=== PATIENT | female | born 1960 | race Caucasian/White ===

== ENCOUNTER → 2022-11-13 10:24 | Outpatient (BNVA) | payer MEDICARE, OTHER, SELFPAY | PROVIDERS: PCP Family Medicine; Visit Provider Physician Assistant Surgical ==

== ENCOUNTER → 2022-11-22 08:27 | Outpatient (BNVA) | payer MEDICARE, OTHER, SELFPAY | PROVIDERS: PCP Family Medicine; Visit Provider Physician Assistant | DX: E66.01 Morbid (severe) obesity due to excess calories (principal); E11.69 Type 2 diabetes mellitus with other specified complication; E78.5 Hyperlipidemia, unspecified; E87.5 Hyperkalemia; I10 Essential (primary) hypertension; I38 Endocarditis, valve unspecified; M19.90 Unspecified osteoarthritis, unspecified site; Z68.42 Body mass index [BMI] 45.0-49.9, adult | CPT/HCPCS: 99202 ==

== ENCOUNTER → 2022-12-26 09:47 | Outpatient (BNVA) | payer MEDICARE, OTHER, SELFPAY | PROVIDERS: PCP Family Medicine; Visit Provider Dietitian, Registered | DX: E66.01 Morbid (severe) obesity due to excess calories (principal); Z68.41 Body mass index [BMI] 40.0-44.9, adult | CPT/HCPCS: 97802 ==

== ENCOUNTER → 2023-02-17 14:22 | Outpatient (BNVA) | payer MEDICARE, OTHER, SELFPAY | PROVIDERS: PCP Family Medicine; Visit Provider Physician Assistant | DX: E66.01 Morbid (severe) obesity due to excess calories (principal); E11.69 Type 2 diabetes mellitus with other specified complication; E78.5 Hyperlipidemia, unspecified; I10 Essential (primary) hypertension; I38 Endocarditis, valve unspecified; Z68.42 Body mass index [BMI] 45.0-49.9, adult | CPT/HCPCS: 99212 ==

== ENCOUNTER 2023-03-24 10:59 | Outpatient (AMB) | payer MEDICARE, OTHER, SELFPAY ==
--- NOTE | 2023-03-24 11:00 | MHC.OFFVISWM ---
Intake VS Expanded 03/24/23 11:01 Height 5 ft 8.5 in Weight 296 lb 9.6 oz BMI 44.4 BP 144/63 H Blood Pressure Location Rt brachial Blood Pressure Position Sitting Pulse 76 Pulse Source Pulse Oximeter Temp 97.0 F Temperature Source Temporal Artery Scan Pulse Oximetry 95 Oxygen Delivery Method Room Air Body Fat 133.6 Body Fat Percentage 45.1 Free Fat Mass 163.0 Muscle Mass 154.8 Visceral Mass 16.0 Water Mass 115.6 BMR 2,294 Intake Visit Reasons: (OV) F/U [facility] Allergies No Known Allergies Allergy (Verified 03/24/23 11:07) Medication List - Last Reconciled 03/24/23 by Noni Cornelius PA-C atorvastatin 40 mg PO QPM bupropion HCl 150 mg PO DAILY citalopram 10 mg PO DAILY lisinopril 5 mg PO DAILY metoprolol succinate ER 25 mg PO DAILY HPI HPI Comments History of Present Illness Details This is the patients last [facility] appt, she started on 11/22/22 at 315.1 lbs and TBWL is 18.5 lbs or 5.9%. AIC down to 7.1 from 8.1. Exercise - tried to Antonio valadez- too hard for her and stopped. meal plan: tea with milk 9am - shake or 2 eggs with cheese or vegetable 1-2 pm - berries, 1/2 - full c low fat cottage cheese with 2 eggs if didn't have in am. Meat balls with sauce and cheese. 5-6 pm - chicken or fish with vegetables - orders out frequently after dinner - crackers with full fat cream crackers. [facility] Medical History (Updated 11/22/22 @ 09:21 by Noni Cornelius PA-C) Obesity Surgical History Hx of section Hx of cholecystectomy Family History Mother Multiple sclerosis Anemia Father Heart valve replaced Hypertension High cholesterol Daughter Anxiety Daughter Anxiety Social History Alcohol intake: never Patient Tobacco Use Status: Former Tobacco user Physical Exam Vital Signs: Last Vital Signs Temp 97.0 F 03/24/23 11:01 Pulse 76 07/17/23 11:01 BP 144/63 H 03/24/23 11:01 Pulse Ox 95 03/24/23 11:01 Oxygen Delivery Method Room Air 03/24/23 11:01 BMI result Body Mass Index 44.4 Assessment & Plan Assessment & Plan (1) Morbid obesity with BMI of 40.0-44.9, adult: Code(s): E66.01 - Morbid (severe) obesity due to excess calories; Z68.41 - Body mass index [BMI] 40.0-44.9, adult Plan: Last M[facility] appt with 18.5 lbs or 5.9% TBWL. I have tried again to encourage her to do the PE wheelchair exercises at least 4 d/week. She could not tell me whether she thinks this is a sustainable meal plan for her but did not have any other ideas either. We discussed mindfulness and choices. tea shake or 2 eggs with veggies cc with berries or eggs (if not for breakfast_ dinner protien and veg, 1/2 c healthy carb - no white carbs raw vegetables iwth reduced fat cream cheese Will have a follow up aptp in 3-4 months with me. Patient is morbidly obese and is not considered stable at this time. I spent 30 minutes in total with patient reviewing/updating records, examining the patient and counseling the patient on weight management as detailed above. Coding Level of Care Code Est Pt Level 4 (65368) Diagnoses Morbid obesity with BMI of 40.0-44.9, adult E66.01; Z68.41
[2023-03-24 11:01] VITALS: BP 144/63; PULSE 76; TEMP 36.1; O2SAT 95; BMI 44.4
== END 2023-03-24 11:47 | disposition home or self-care (01) ==
PROVIDERS: PCP Family Medicine; Visit Provider Physician Assistant
DX: E66.01 Morbid (severe) obesity due to excess calories (principal); Z68.41 Body mass index [BMI] 40.0-44.9, adult
CPT/HCPCS: 99214

== ENCOUNTER → 2023-03-24 10:59 | Outpatient (BNVA) | payer MEDICARE, OTHER, SELFPAY | PROVIDERS: PCP Family Medicine; Visit Provider Physician Assistant | DX: E66.01 Morbid (severe) obesity due to excess calories (principal); Z68.41 Body mass index [BMI] 40.0-44.9, adult | CPT/HCPCS: 99212 ==

== ENCOUNTER 2023-08-27 15:56 | Outpatient (AMB) | payer MEDICARE, OTHER, SELFPAY ==
--- NOTE | 2023-08-27 12:09 | MHC.OFFVISWM ---
Intake VS Expanded 08/27/23 15:47 Height 5 ft 8.5 in Weight 279 lb BMI 41.8 Intake Visit Reasons: (OV) F/U [facility] Allergies No Known Allergies Allergy (Verified 03/24/23 11:07) HPI HPI Comments History of Present Illness Details M[facility] follow up. Started the program in November of 2022 at 315.1 lbs, at her last appt in March she completed the program and weighed 296.9 lbs. She has 39 lbs in total. Has stopped protein bars. coffee with half and half 9 am - 1-2 eggs with vegetables 1 pm - deli meat roll, low sodium. or home made soup or cream of broccoli soup. and fruit with cottage cheese unsweetened cooca in pm 6pm - meat and vegetables - appropriate portions Exercise - Antonio valadez - 3 d/ week. [facility] Medical History (Updated 11/22/22 @ 09:21 by Noni Cornelius PA-C) Obesity Surgical History Hx of section Hx of cholecystectomy Family History Mother Multiple sclerosis Anemia Father Heart valve replaced Hypertension High cholesterol Daughter Anxiety Daughter Anxiety Social History Alcohol intake: never Patient Tobacco Use Status: Former Tobacco user Assessment & Plan Assessment & Plan (1) Morbid obesity with BMI of 40.0-44.9, adult: Code(s): E66.01 - Morbid (severe) obesity due to excess calories; Z68.41 - Body mass index [BMI] 40.0-44.9, adult Plan: MW pt has lost 39 lbs over last 9 months, wants to continue losing more. We made some minor changes to meal plan. coffee with 2% milk Breakfast 2 eggs with vegetables, or may have steel cut oats with eggs or yogurt Lunch - cottage and fruit OR deli meat roll ups and raw vegetable - but not both dinner - same Exercise - increase to at least 4 d/ week - 5d is better. Next appt with me for continued support in 4 months. Patient is still morbidly obese and is not considered stable at this time. I spent 30 minutes in total speaking with the patient via video conference counseling , reviewing records and charting in patients chart. . Telehealth Telehealth Location of provider rendering services: practice address Location of patient: address on file Patient Identification confirmed using: Name, : Yes Telehealth method: voice only Patient verbally consented to treatment: Yes Patient verbally consented to billing insurance company: Yes Patient informed of any privacy concerns related to visit: Yes Coding Level of Care Code Tele Est Pt Level 4 (28512) Diagnoses Morbid obesity with BMI of 40.0-44.9, adult E66.01; Z68.41
[2023-08-27 15:47] VITALS: BMI 41.8
== END 2023-08-27 15:57 | disposition home or self-care (01) ==
LOC: HO.HBS 15:56
PROVIDERS: PCP Family Medicine; Visit Provider Physician Assistant
DX: E66.01 Morbid (severe) obesity due to excess calories (principal); Z68.41 Body mass index [BMI] 40.0-44.9, adult
CPT/HCPCS: 99443

== ENCOUNTER → 2023-08-27 15:56 | Outpatient (BNVA) | payer MEDICARE, OTHER, SELFPAY | PROVIDERS: PCP Family Medicine; Visit Provider Physician Assistant ==